=== PATIENT | male | born 1945 | race Caucasian/White ===

== ENCOUNTER 2018-01-15 07:46 | Observation (INO) | payer MEDICARE, OTHER ==
[2018-01-15] MEDS ORDERED: diphenhydrAMINE 25 MG CAP PO ONE ×2 (07:48→08:03)
[2018-01-15] MEDS ORDERED: ASPIRIN EC 325 MG TAB PO ONE ×2 (07:48→08:03)
[2018-01-15] MEDS ORDERED: DIAZEPAM 5 MG TAB PO ONE (07:48)
[2018-01-15] MEDS ORDERED: NS 1,000 ML IV ONE (07:48)
[2018-01-15] MEDS ORDERED: FAMOTIDINE 20 MG TAB PO ONE (07:48)
[2018-01-15] MEDS ORDERED: FAMOTIDINE 20 MG TAB ONE (08:03)
[2018-01-15] MEDS ORDERED: DIAZEPAM 5 MG TAB ONE (08:04)
[2018-01-15 08:34] LABS: PLATELET COUNT 175 10^3/uL (150-400)
[2018-01-15 08:59] LABS: INR 1.09 (0.83-1.16); PROTIME(PATIENT) 14.3 SEC (12.0-15.0)
[2018-01-15] MEDS ORDERED: MIDAZOLAM 2 MG/2 ML VIAL ONE ×5 (09:15→12:21)
[2018-01-15] MEDS ORDERED: fentaNYL 100 MCG/2 ML INJ ONE ×4 (09:15→12:21)
[2018-01-15] MEDS ORDERED: LIDOCAINE 1% 300 MG/30 ML SDV ONE ×2 (09:15→12:20)
[2018-01-15] MEDS ORDERED: IOPAMIDOL (ISOVUE-370) 150 ML BTL IV ONE ×3 (09:15→12:21)
--- NOTE | 2018-01-15 09:17 | PDHPUP ---
History & Physical Update H&P update statement: This history and physical update is based on an assessment of the patient which was completed after admission or registration (within 24 hours), but prior to the surgery/procedure. H&P update: H&P reviewed & patient examined, no change in patient's condition since H&P completed (Pt with ongoing exertional chest discomfort and duke)
--- NOTE | 2018-01-15 09:18 | PDPROPOC ---
Sedation Plan of Care Sedation Plan of Care: vital signs stable, mental status noted, patient educated of risks, benefits, alternatives, patient can tolerate sedation ASA Classification: ASA 2 Planned drugs: fentanyl, midazolam Mallampati Score: Class 2 Mallampati Reference Image: Patient passed 3-3-2 rule?: Yes
[2018-01-15] MEDS ORDERED: BIVALIRUDIN 250 MG/5 ML VIAL IV ONE ×2 (10:27→11:05)
[2018-01-15] MEDS ORDERED: NITROGLYCERIN 1,500 MCG/15 ML VIAL MISC ONE (10:28)
[2018-01-15] MEDS ORDERED: PRASUGREL HCL 10 MG TAB ONE (11:59)
[2018-01-15] MEDS ORDERED: TEMAZEPAM 15 MG CAP PO PRN (12:16)
[2018-01-15] MEDS ORDERED: NITROGLYCERIN 0.4 MG BTL SL PRN (12:16)
[2018-01-15] MEDS ORDERED: LORazepam 2 MG/ML INJ IVP PRN (12:16)
[2018-01-15] MEDS ORDERED: PRASUGREL HCL 10 MG TAB PO ONE (12:16)
[2018-01-15] MEDS ORDERED: ONDANSETRON 4 MG/2 ML VIAL IVP PRN (12:16)
[2018-01-15] MEDS ORDERED: ATROPINE SULFATE 1 MG/10 ML SYR IVP PRN (12:16)
[2018-01-15] MEDS: OXYCODONE/APAP 5/325 TAB PO PRN ×2 (12:30→19:02)
[2018-01-15] MEDS ORDERED: NS 1,000 ML IV SCH (12:30)
--- NOTE | 2018-01-15 14:17 | CPIP ---
PROCEDURES PERFORMED: 1. Coronary catheterization. 2. Selective coronary angiography. 3. Percutaneous transluminal coronary angioplasty and stent placement of the right coronary artery w ith a Synergy 2.5 x 20 stent to the distal right coronary artery, a 2.5 x 24 stent to the left anteri or descending, and a 3.5 x 16 Synergy stent to the proximal right coronary artery. COMPLICATIONS: None. INDICATIONS/APPROPRIATE USE CRITERIA: The patient is a 72-year-old man with a history of coronary ar luda disease, who presents with angina and has an abnormal nuclear stress test suggestive of anterior apical infarction with aly-infarct ischemia, as well as inferolateral ischemia. He presents for el ective coronary angiography under the care of Dr. Arthur Boss. I was asked to see the patient in intr aoperative consultation because of severe and obstructive coronary disease. The patient was noted to have a chronic total occlusion of the LAD distal to a large diagonal branch. The distal and dominan t right coronary artery was occluded distally with good left to right collaterals from the LAD diagon al system. There was a 90% lesion of the distal RCA proximal to several other posterolateral ventric ular branches and an 80% lesion of the mid right coronary artery proximal to the acute margin of the right ventricle. There was AASHISH-3 flow to the level of the LAD diagonal and then a total occlusion w ith AASHISH-0 flow. There was AASHISH-3 flow to the level of the distal RCA at the level of the PLV branch es, which were collateralized. The patient's options with his angina and abnormal nuclear stress test would be to have bypass surger y versus complex 2-vessel intervention. He does have a total occlusion of a very small left circumfl ex which is ungraftable and less than 1.5 mm in size. The mid and distal LADs appear to be smaller t kramer 2 mm. Therefore, I did not think the patient would be a reasonable candidate for a SIDDIQI to the L AD. For this reason, we elected to proceed with an attempt at angioplasty and stent implantation of the right coronary and LOGISTICS SUPERVISOR of the LAD. PROCEDURE IN DETAIL: A 6-Russian sheath was exchanged for a 7-Russian sheath. A 7-Russian JR4 guiding catheter with side holes was used for guide catheter support. A 0.014 [employer] 50 wire and small balloo n were advanced into the distal RCA, and the distal lesion was primarily ballooned with a 1.5 x 12 ov er the wire balloon. A wiggle wire was switched out from the [employer] floppy PT wire and balloon angio plasty was performed with good results and a 40% residual stenosis. The lesion in the distal RCA was then secondarily stented with a 2.5 x 20 balloon over the wiggle wire with 0% residual stenosis and excellent and AASHISH-3 flow to the 3 PLV branches. We did not achieve additional antegrade flow into is[place] emerson distal RCA as that did appear to be very well-collateralized from the left and I did not think the risk of reopening the vessel would be warranted given the small territory involved. We then balloon ed and stented the mid right coronary lesion with the use of a Synergy 3.5 x 16 balloon at a maximum pressure of 16 atmospheres with excellent angiographic results following post-dilation with an Emerge NC 4.0 x 12 balloon at a maximum pressure of 15 atmospheres. There was excellent AASHISH-3 flow to the level of the chronic total occlusion in a very distal vessel and 0% residual stenosis in both the st ented areas. We turned our attention to the LAD. A 3.5, 7-Russian EBU catheter was used for guide catheter support . A 0.014 long [employer] 50 wire was used to cross the lesion in question. The original [employer] 50 from is[place] emerson original RCA was used for crossing the lesion. We ultimately were able to advance a 1.25 x 6 over -the-wire Sprinter balloon and exchange that for a 0.014 wiggle wire. The LOGISTICS SUPERVISOR was then ballooned wit h a 1.25 x 6 [id number] balloon after distal blood flow was confirmed from the lumen of the balloo n. We then used a 2.5 x 15 Emerge balloon to pre-dilate the LOGISTICS SUPERVISOR of the LAD, and a 2.5 x 24 Synergy d rug-eluting stent was then implanted at a maximum pressure of 16 atmospheres with excellent angiograp hic results and 0% residual stenosis with the stent just distal to the takeoff of the LAD diagonal, a nd no compromise in that vessel was noted. There was excellent and AASHISH-[address] to the di stal apex without significant side branch loss. FINAL IMPRESSION: Successful balloon angioplasty and stent implantation of the mid and distal right coronary arteries, as well as successful PTCA and stent placement of a LOGISTICS SUPERVISOR of the mid LAD distal to t he 1st diagonal with excellent angiographic results and 0% residual stenosis in all 3 lesions, and TI CO-3 and antegrade flow to the mid and distal LAD and AASHISH-3 flow to the level of the LOGISTICS SUPERVISOR of the very distal RCA which was collateralized from the left. The patient will be admitted overnight for obser vation. Should be able to be discharged in the morning unless complications ensue. Will require bryn l antiplatelet therapy for at least 1 year following balloon angioplasty and stent implantation. /[id number]/MODL
[2018-01-15] MEDS: CITALOPRAM 20 MG TAB PO SCH (17:43)
[2018-01-15] MEDS ORDERED: ZOLPIDEM TARTRATE 5 MG TAB PO SCH (21:00)
--- NOTE | 2018-01-15 21:18 | CPEKG ---
Test Reason : OPEN Blood Pressure : / mmHG Vent. Rate : 060 BPM Atrial Rate : 060 BPM P-R Int : 204 ms QRS Dur : 099 ms QT Int : 454 ms P-R-T Axes : -19 -50 -24 degrees QTc Int : 454 ms Sinus rhythm Inferior infarct, age indeterminate Abnormal ST T wave contour in V1- V3 Confirmed by Se Salinas ([id number]) on 01/15/2018 9:17:25 PM Referred By: Confirmed By:Se Salinas
--- NOTE | 2018-01-15 21:23 | CPEKG ---
Test Reason : OPEN Blood Pressure : / mmHG Vent. Rate : 073 BPM Atrial Rate : 073 BPM P-R Int : 191 ms QRS Dur : 097 ms QT Int : 422 ms P-R-T Axes : -03 -48 -15 degrees QTc Int : 465 ms Sinus rhythm with left anterior fasicular block Confirmed by Se Salinas ([id number]) on 01/15/2018 9:23:11 PM Referred By: Confirmed By:Se Salinas
[2018-01-15] MEDS: HYDROCODONE/APAP 5/325 TAB PO PRN (22:15)
[2018-01-16] MEDS: HYDROCODONE/APAP 5/325 TAB PO PRN (04:20)
[2018-01-16 05:30] LABS: PLATELET COUNT 142 10^3/uL (150-400)
--- NOTE | 2018-01-16 06:37 | CPIP ---
DATE OF PROCEDURE: 01/15/2018 PROCEDURE: Cardiac catheterization INDICATION FOR PROCEDURE: Patient with exertional chest pain, shortness of breath, coupled with evid ence of ischemia on nuclear stress test performed at [facility] office. SUMMARY: The patient is pleasant 72-year-old gentleman with a known history of severe coronary arter y disease on diagnostic left heart catheterization March 2016, with occluded circumflex and occlude d LAD with collaterals from the right coronary artery, as well as [id number] collaterals. He did n ot undergo any intervention or revascularization in March of 2016, and has been medically managed t lan. He moved to [place] approximately 6 months ago and has over the last several months experienced incre asing shortness of breath, dyspnea, as well as exertional chest discomfort leading to findings on his nuclear stress test earlier this week. He presents for diagnostic left heart catheterization and consideration of possible percutaneous chaka nary intervention. DESCRIPTION OF PROCEDURE: After risks and benefits of left heart catheterization were reviewed and c onsents were obtained for left heart catheterization and possible percutaneous coronary intervention, the patient was brought to the cardiac catheterization lab where he was prepped and draped in a ster ile fashion. Using 1% lidocaine, the right groin was anesthetized. Using modified Seldinger technique, with micro puncture technique, 6-Ukrainian catheter was placed in the right common femoral artery without complicat ions. Patient tolerated the procedure well. A JL4 catheter was used to take images of the left coronary anatomy in multiple projections. The JL4 catheter was exchanged over a guidewire for a JR4 catheter. JR4 catheter was used to take images of the right coronary anatomy in multiple projections. JR4 catheter was exchanged over a guidewire for an angled pigtail catheter. Angled pigtail catheter was used to cross the aortic valve. Left ventr iculogram was performed. LVEDP was assessed. Angled pigtail catheter was removed over a guidewire w ithout complications. Angiography of the right common femoral artery site demonstrated appropriate p lacement of the 6-Ukrainian sheath below the inguinal ligament above the bifurcation of the right common femoral artery. FINDINGS: 1. Left main normal size and caliber. Bifurcates into left anterior descending and left circumflex coronary artery. There is no evidence of coronary disease within the left main. 2. Left anterior descending artery has chronic total occlusion at the level of first diagonal branch . He has a large diagonal branch that provides many branches, as well as a large septal mountain bike guide. 3. The circumflex vessel is occluded at its origin. There is an obtuse marginal branch with mild quang letha irregularities. 4. The right coronary artery is a dominant vessel and occluded distally with evidence of left-to-rig ht collaterals from the LAD diagonal system. There is 90% stenosis in the distal right coronary tierney ry in the posterolateral branch. There is a 70% to 80% mid RCA stenosis. 5. Left ventricular function demonstrated LVEF of 50%. LVEDP 20 mmHg. 6. Aortic valve gradient: None. CONCLUSION: 1. Severe 3-vessel coronary artery disease: a. Chronic total occlusion of the left anterior descending at the level of first diagonal branch. b. Chronic total occlusion of the circumflex vessel with patent obtuse marginal branch with mild lum inal irregularities. c. Dominant right coronary artery with mid right coronary artery stenosis of 70% and distal right co ronary artery stenosis in the posterolateral lateral branch of 90%. 2. Low normal left ventricular function with left ventricular ejection fraction of 50%. SUMMARY: I reviewed diagnostic images with my interventional colleague, Dr. Se Salinas. Discussed percutaneous options versus possible consideration for coronary bypass graft surgery. It was though t that RCA was amenable to percutaneous coronary intervention in the mid vessel with plans for percut aneous intervention to the distal vessel as well. If this was successful, would plan for percutaneou s coronary intervention to the left anterior descending artery. PLAN: Will plan for percutaneous coronary intervention to the RCA, posterolateral branch and LAD. /[id number]/MODL
[2018-01-16 07:16] VITALS: BP 134/85
[2018-01-16] MEDS: CITALOPRAM 20 MG TAB PO SCH (08:01)
[2018-01-16] MEDS ORDERED: CARVEDILOL 25 MG TAB PO SCH (08:45)
[2018-01-16] MEDS ORDERED: ASPIRIN EC 325 MG TAB PO SCH (09:00)
[2018-01-16] MEDS ORDERED: ROSUVASTATIN CALCIUM 40 MG TAB PO SCH (09:00)
[2018-01-16] MEDS ORDERED: PRASUGREL HCL 10 MG TAB PO SCH (09:00)
--- NOTE | 2018-01-16 09:01 | PDCARPN ---
Cardiology Progress Note Assessment/Plan: Assessment: 1. Coronary disease, status post PCI to RCA x2 and LAD x1 on 01/15/2018 2. Hyperlipidemia, suboptimally controlled. LDL of 92 yesterday. 3. Hypertension Plan: -patient is stable for discharge home today -patient has been seen by cardiac rehab and will plan to start after follow-up appointment -patient is scheduled to follow up with LUIS Rodriguez on Friday01/23/2018 at 11:00 a.m. At [facility] office -patient counseled on post operative care -cardiac discharge medications include: 1. Effient 10 mg once daily 2. Aspirin 325 mg once daily 3. Rosuvastatin 40 mg once daily 4. Coreg 12.5 mg p.o. B.i.d. 5. Olmsartan 40 mg once daily 6. Hydrochlorothiazide 25 mg once daily 01/16/18 08:56 Subjective: Mario is feeling well this morning. No cardiac complaints. Blood pressure is well controlled. Sinus rhythm on telemetry. Right groin site stable without hematoma or ecchymosis. Mario underwent successful PCI x2 to the RCA and x1 to the LAD. Time Spent with Patient: greater than 25 minutes Time Spent with Patient: Greater than 25 minutes spent on this patients care, greater than 50% of time spent counseling, educating, and coordinating care regarding the above mentioned plan. Objective: Vital Signs (8 Hrs) Temp Pulse Resp BP Pulse Ox 01/16/18 07:15 36.7 C 77 19 134/85 H 96 01/16/18 04:00 36.6 C 77 16 123/76 H 98 Intake/Output (24 Hrs) 01/15/18 01/16/18 01/17/18 05:59 05:59 05:59 Intake Total 2240 Balance 2240 Intake: Oral (ml) 740 IV Intake (ml) 1500 Other: Weight 99.3 kg Number of Voids Toilet 1 Result Diagrams: 01/16/18 04:14 01/16/18 04:14 ICD10 Worksheet Patient Problems: Problems Problem Status Onset CAD (coronary artery disease) Acute - ICD10 Problem Qualifiers (1) CAD (coronary artery disease)
--- NOTE | 2018-01-16 09:42 | GDS ---
INDICATION FOR ADMISSION: Known history of coronary artery disease with symptoms of exertional chest pain and shortness of breath, coupled with abnormal nuclear stress test, consistent with anterior wa ll ischemia. HOSPITAL COURSE: Mr. Hanley is a pleasant 72-year-old gentleman with a known history of coronary art josiane disease, with progressive symptoms of exertional chest pain and shortness of breath. He underwen t diagnostic left heart catheterization yesterday, demonstrating an occluded circumflex vessel. Left anterior descending artery was occluded beyond the first diagonal branch, and right coronary artery was a large caliber dominant vessel with a mid stenosis of 70% to 80% and distal posterolateral branc h stenosis of greater than 90%. He underwent successful PCI to the RCA x2 into the LAD with return t o AASHISH grade 3 flow in both the RCA, as well as LAD. Circumflex vessel territory is collateralized w ith [id number] collaterals from the diagonal branch off the LAD, as well as from the right coronar y artery. Patient tolerated the procedure well. He had no postoperative complications. This morning, he is feeling well, without cardiac complaint. Groin site is stable, without hematoma. PHYSICAL EXAM: VITAL SIGNS: On exam this morning, blood pressure 134/85, heart rate of 77, oxygen s aturation 96% on room air. GENERAL: He is awake, alert, oriented, appropriate, in no apparent distr ess. NECK: There is no evidence of JVP. LUNGS: Clear to auscultation bilaterally. CARDIAC: S1, S2. Regular rate and rhythm. No murmurs, rubs, or gallops. : Right groin site is stable. No ev idence of hematoma or ecchymosis. EXTREMITIES: Distal pulses are intact. No evidence of cyanosis, clubbing or edema. LABORATORY DATA: At time of discharge, white blood cell count 9.44, hemoglobin of 12.7, hematocrit o f 37.3, platelet count 142. Sodium 139, potassium 3.7, chloride 106, bicarb 24, BUN 17, creatinine 0 .9, magnesium 1.8. A lipid profile performed yesterday, January 15, 2018, demonstrated total cholest kristian of 172, triglycerides 114, HDL 57, and LDL of 92. This is on lovastatin 40 mg daily. MEDICATIONS: At discharge include: 1. Effient 10 mg once daily. 2. Aspirin 325 mg daily. 3. Rosuvastatin 40 mg daily. 4. Coreg 12.5 mg p.o. b.i.d. 5. Olmesartan 40 mg once daily. 6. Hydrochlorothiazide 25 mg once daily. Noncardiac medications at time of discharge include Celexa 40 mg once daily. He has also been given a prescription for nitroglycerin. PLAN: At time of discharge: 1. Patient will be discharged home. 2. Patient is scheduled for followup with LUIS Rodriguez, on Tuesday, January 23, 2018, at 11 a.m . at the [facility] office. 3. He has been seen by cardiac rehab this morning. Will plan to start cardiac rehab after followup appointment. 4. Postoperative left heart catheterization instructions have been reviewed with patient in detail. 5. Prescriptions have been provided for rosuvastatin and Effient. 6. Diet and exercise have been discussed in detail, including initiation of Mediterranean diet. /[id number]/MODL
--- NOTE | 2018-01-17 07:20 | CPEKG ---
Test Reason : OPEN Blood Pressure : / mmHG Vent. Rate : 076 BPM Atrial Rate : 076 BPM P-R Int : 184 ms QRS Dur : 104 ms QT Int : 405 ms P-R-T Axes : 012 -52 -14 degrees QTc Int : 456 ms Sinus rhythm Left anterior fascicular block Probable old inferior infarct Abnormal ST T contour persists, but improved compared to prior EKG Confirmed by Se Salinas ([id number]) on 01/17/2018 7:19:38 AM Referred By: Confirmed By:Se Salinas
== END 2018-01-16 10:40 | disposition home or self-care (01) ==
LOC: FCATH 07:46 → F2W 12:22
PROVIDERS: ADMIT Internal Medicine Cardiovascular Disease; ATTEND Internal Medicine Cardiovascular Disease
PROC: 027236Z Dilation of Coronary Artery, Three Arteries with Three Drug-eluting Intraluminal Devices, Percutaneous Approach (ICD-10-PCS; principal; 2018-01-15)
PROC: 4A023N7 Measurement of Cardiac Sampling and Pressure, Left Heart, Percutaneous Approach (ICD-10-PCS; 2018-01-15)
PROC: B2151ZZ Fluoroscopy of Left Heart using Low Osmolar Contrast (ICD-10-PCS; 2018-01-15)
PROC: B2111ZZ Fluoroscopy of Multiple Coronary Arteries using Low Osmolar Contrast (ICD-10-PCS; 2018-01-15)
DX: I25.118 Atherosclerotic heart disease of native coronary artery with other forms of angina pectoris (principal); I25.2 Old myocardial infarction; I10 Essential (primary) hypertension; E78.5 Hyperlipidemia, unspecified; E66.9 Obesity, unspecified; Z68.30 Body mass index [BMI] 30.0-30.9, adult
CPT/HCPCS: 93005; 93458; C1725; C1760; C1769; C1874; C1887; C9600; G0378; J0583; J1644; J2250; J2270; J3010; Q9967

== ENCOUNTER → 2018-04-01 | Outpatient (CLI) | payer OTHER | LOC: FIMAGING 11:46 | PROVIDERS: ATTEND Internal Medicine Critical Care Medicine | DX: R05 Cough (principal); J45.909 Unspecified asthma, uncomplicated; S22.060A Wedge compression fracture of T7-T8 vertebra, initial encounter for closed fracture ==

== ENCOUNTER → 2018-07-14 | Outpatient (CLI) | payer OTHER | LOC: FIMAGING 09:28 | PROVIDERS: ATTEND Specialist | DX: C61 Malignant neoplasm of prostate (principal) | CPT/HCPCS: 78306; A9503 ==

== ENCOUNTER 2018-09-03 05:48 | Inpatient (IN) | payer OTHER | END 2018-09-05 12:18 | disposition home or self-care (01) | LOC: F1N 05:48 ==